=== PATIENT | female | born 1950 | race Caucasian/White ===

== ENCOUNTER 2019-06-17 09:33 | Inpatient (IN) | payer MEDICARE ==
[~2019-06-17] VITALS: Ht 167.6 cm; Wt 75.3 kg
[2019-06-17] MEDS ORDERED: IPRATRPIUM/ALBUTEROL 0.5/2.5MG 3 ML NEBU. NEB ONE (10:15)
[2019-06-17 10:29] LABS: BASO # 0.1 x10^3/uL (0.0-0.2); BASO % 1 % (0-3); EOS # 0.2 x10^3/uL (0.0-0.7); EOS % 2 % (0-3); HEMATOCRIT 41.2 % (36.0-47.0); HEMOGLOBIN 14.1 g/dL (12.0-15.5); LYMPH # 1.8 x10^3/uL (1.0-4.8); LYMPH % 18 % (24-48); MEAN CORPUSCULAR HEMOGLOBIN 31 pg (25-35); MEAN CORPUSCULAR HGB CONC 34 g/dL (31-37); MEAN CORPUSCULAR VOLUME 90 fL (79-100); MONO # 0.8 x10^3/uL (0.0-1.1); MONO % 7 % (0-9); NEUT # 7.6 x10^3/uL (1.8-7.7); NEUT % 72 % (31-73); PLATELET COUNT 247 x10^3/uL (140-400); RED CELL DISTRIBUTION WIDTH 13.7 % (11.5-14.5); WHITE BLOOD COUNT 10.5 x10^3/uL (4.0-11.0)
[2019-06-17] MEDS ORDERED: methylPREDNISolone SOD SUCC PF 125 MG/2 ML VIAL. IV ONE (10:30)
--- NOTE | 2019-06-17 10:36 | RAD ---
PA and lateral views of the chest. Comparison: None. Indication: Shortness of air and cough Findings: The heart size is normal. No pneumothorax or effusion. No air space or interstitial disease. The bony structures are intact. Impression: 1. No acute cardiopulmonary process. Electronically signed by: Thai Pantoja MD (06/17/2019 10:33 AM) [facility]
[2019-06-17 10:39] LABS: PROTHROMBIN TIME PATIENT 12.9 SEC (11.7-14.0)
[2019-06-17 10:41] LABS: BILIRUBIN,URINE NEGATIVE (NEG); CLARITY,URINE CLEAR; COLOR,URINE YELLOW; NITRITE,URINE NEGATIVE (NEG); PH,URINE 5.5; PROTEIN,URINE NEGATIVE (NEG-TRACE); UROBILINOGEN,URINE 0.2 mg/dL (0.2 mg/dL)
[2019-06-17 10:47] LABS: D-DIMER 0.87 ug/mlFEU (0.00-0.50)
--- NOTE | 2019-06-17 10:51 | PHYS DOC ---
Past Medical History Attending Signature I have participated in the care of this patient and I have reviewed and agree with all pertinent clinical information above including history, exam, and recommendations. (KISHA GARCIA MD) Adult General Chief Complaint Chief Complaint: SHORTNESS OF BREATH HPI HPI Patient is a 69 year old female, who presents to the emergency department with complaints of shortness of breath for the last 2 days. Patient reports history of COPD and feels like she has been having problems with an upper respiratory cold for the last 2 weeks. She denies any chest pain, palpitations, nausea, vomiting and diarrhea, abdominal pain, fever, dysuria, back pain, hematuria, or increased urinary frequency. Patient states she has had a productive cough with yellow to clear sputum for the last 2 days. She denies any numbness, tingling, weakness, headache, or dizziness. Patient states she took a breathing treatment at home prior to arrival with some relief of her symptoms. Currently rates her discomfort a 5 out of 10 on pain scale, she denies any alleviating factors. All other ROS is neg unless otherwise noted in HPI. (SHAJI GARCÍA APRN) Review of Systems Review of Systems See Above (SHAJI GARCÍA APRN) Current Medications Current Medications Current Medications Medications (Trade) Dose Ordered Sig/Patrick Start Time Stop Time Status Last Admin Dose Admin Albuterol/ Ipratropium (Duoneb) 3 ml 1X ONCE 06/17/19 10:15 06/17/19 10:23 DC 06/17/19 10:07 3 ML Info (CONTRAST GIVEN -- Rx MONITORING) 1 each PRN DAILY PRN 06/17/19 11:30 06/19/19 11:29 Iohexol (Omnipaque 350 Mg/ml) 90 ml 1X ONCE 06/17/19 11:30 06/17/19 11:31 DC 06/17/19 12:00 90 ML Methylprednisolone Sodium Succinate (SOLU-Medrol 125MG VIAL) 125 mg 1X ONCE 06/17/19 10:30 06/17/19 10:31 DC 06/17/19 10:49 125 MG (KISHA GARCIA MD) Allergies Allergies Allergies Coded Allergies Type Severity Reaction Last Updated Verified No Known Drug Allergies 06/17/19 No (KISHA GARCIA MD) Physical Exam Physical Exam See Above Constitutional: Well developed, well nourished, no acute distress, non-toxic appearance. [] HENT: Normocephalic, atraumatic, bilateral external ears normal, oropharynx moist, no oral exudates, nose normal. [] Eyes: PERRLA, EOMI, conjunctiva normal, no discharge. [] Neck: Normal range of motion, no tenderness, supple, no stridor. [] Cardiovascular:Heart rate regular rhythm, no murmur [] Lungs & Thorax: Bilateral breath sounds clear to auscultation in upper lobes, coarse throughout posterior lobes, diminished in right lower lobe, scattered expiratory wheezes, no retractions, no increased work of breath.] Abdomen: Bowel sounds normal, soft, no tenderness, no masses, no pulsatile masses. [] Skin: Warm, dry, no erythema, no rash. [] Back: No tenderness Extremities: No cyanosis, ROM intact, no edema. [] Neurologic: Alert and oriented X 3, no focal deficits noted. [] Psychologic: Affect normal, judgement normal, mood normal. [] (SHAJI GARCÍA APRN) Current Patient Data Vital Signs Vital Signs Date Time Temp Pulse Resp B/P (MAP) Pulse Ox O2 Delivery O2 Flow Rate FiO2 06/17/19 14:05 88 20 147/82 (103) 95 Nasal Cannula 2.0 06/17/19 09:55 99.8 99.8 (KISHA GARCIA MD) Lab Values Laboratory Tests Test 06/17/19 10:15 06/17/19 10:30 06/17/19 10:50 White Blood Count 10.5 x10^3/uL (4.0-11.0) Red Blood Count 4.60 x10^6/uL (3.50-5.40) Hemoglobin 14.1 g/dL (12.0-15.5) Hematocrit 41.2 % (36.0-47.0) Mean Corpuscular Volume 90 fL (79-100) Mean Corpuscular Hemoglobin 31 pg (25-35) Mean Corpuscular Hemoglobin Concent 34 g/dL (31-37) Red Cell Distribution Width 13.7 % (11.5-14.5) Platelet Count 247 x10^3/uL (140-400) Neutrophils (%) (Auto) 72 % (31-73) Lymphocytes (%) (Auto) 18 % (24-48) L Monocytes (%) (Auto) 7 % (0-9) Eosinophils (%) (Auto) 2 % (0-3) Basophils (%) (Auto) 1 % (0-3) Neutrophils # (Auto) 7.6 x10^3/uL (1.8-7.7) Lymphocytes # (Auto) 1.8 x10^3/uL (1.0-4.8) Monocytes # (Auto) 0.8 x10^3/uL (0.0-1.1) Eosinophils # (Auto) 0.2 x10^3/uL (0.0-0.7) Basophils # (Auto) 0.1 x10^3/uL (0.0-0.2) Prothrombin Time 12.9 SEC (11.7-14.0) Prothrombin Time INR 1.0 (0.8-1.1) Activated Partial Thromboplast Time 39 SEC (24-38) H D-Dimer (Deya) 0.87 ug/mlFEU (0.00-0.50) H Urine Collection Type Void Urine Color Yellow Urine Clarity Clear Urine pH 5.5 Urine Specific [place] 1.020 Urine Protein Negative mg/dL (NEG-TRACE) Urine Glucose (UA) Negative mg/dL (NEG) Urine Ketones (Stick) Negative mg/dL (NEG) Urine Blood Moderate (NEG) Urine Nitrite Negative (NEG) Urine Bilirubin Negative (NEG) Urine Urobilinogen Dipstick 0.2 mg/dL (0.2 mg/dL) Urine Leukocyte Esterase Negative (NEG) Urine RBC 1-2 /HPF (0-2) Urine WBC 1-4 /HPF (0-4) Urine Squamous Epithelial Cells Mod /LPF Urine Bacteria Few /HPF (0-FEW) Urine Mucus Marked /LPF Sodium Level 140 mmol/L (136-145) Potassium Level 4.1 mmol/L (3.5-5.1) Chloride Level 102 mmol/L (98-107) Carbon Dioxide Level 27 mmol/L (21-32) Anion Gap 11 (6-14) Blood Urea Nitrogen 11 mg/dL (7-20) Creatinine 0.8 mg/dL (0.6-1.0) Estimated GFR (Cockcroft-Gault) 71.1 BUN/Creatinine Ratio 14 (6-20) Glucose Level 103 mg/dL (70-99) H Lactic Acid Level 1.0 mmol/L (0.4-2.0) Calcium Level 9.3 mg/dL (8.5-10.1) Magnesium Level 2.1 mg/dL (1.8-2.4) Total Bilirubin 1.2 mg/dL (0.2-1.0) H Aspartate Amino Transferase (AST) 21 U/L (15-37) Alanine Aminotransferase (ALT) 31 U/L (14-59) Alkaline Phosphatase 102 U/L (46-116) Creatine Kinase 116 U/L (26-192) Creatine Kinase MB (Mass) 1.7 ng/mL (0.0-3.6) Creatine Kinase MB Relative Index 1.5 % (0-4) Troponin I Quantitative < 0.017 ng/mL (0.000-0.055) WU-Ekp-M-Type Natriuretic Peptide 209 pg/mL (0-124) H Total Protein 7.2 g/dL (6.4-8.2) Albumin 3.8 g/dL (3.4-5.0) Albumin/Globulin Ratio 1.1 (1.0-1.7) Laboratory Tests 06/17/19 10:15 Laboratory Tests 06/17/19 10:50 (KISHA GARCIA MD) EKG EKG 1039- sinus rhythm, incomplete right bundle branch block, no specific changes, rate 94, no STEMI read by Dr. Garcia (SHAJI GARCAÍ APRN) Radiology/Procedures Radiology/Procedures PROCEDURE: CHEST PA & LATERAL PA and lateral views of the chest. Comparison: None. Indication: Shortness of air and cough Findings: The heart size is normal. No pneumothorax or effusion. No air space or interstitial disease. The bony structures are intact. Impression: 1. No acute cardiopulmonary process. PROCEDURE: CT ANGIOGRAPHY CHEST CT ANGIOGRAPHY CHEST INDICATION: Dyspnea, elevated d-dimer. Comparison: Chest radiograph 06/17/2019. TECHNIQUE: Following the uneventful administration of intravenous contrast, 90 cc Isovue-370, axial CT sections were obtained through the lungs and upper abdomen. Multiplanar reconstructions and MIP images were obtained. PQRS compliance statement: One or more of the following individualized dose reduction techniques were utilized for this examination: 1. Automated exposure control 2. Adjustment of the mA and/or kV according to patient size 3. Use of iterative reconstruction technique FINDINGS: Lungs and Airways: Few scattered foci of groundglass opacity in the right lower lobe. Indeterminate right middle lobe polylobular nodule measuring 0.9 cm (series 3 image 88). Bibasilar subsegmental atelectasis. Centrilobular emphysema. Mild scattered endobronchial mucous plugging. Slightly irregular cystic area in the inferior right upper lobe without soft tissue component. Pleura: The pleural spaces are normal. Heart and Mediastinum: The visualized thyroid is normal in size and attenuation. No axillary or supraclavicular lymphadenopathy. No mediastinal, hilar or retrocrural lymphadenopathy. Normal cardiac size. No pericardial effusion. Coronary artery atherosclerotic disease. Atherosclerosis of the thoracic aorta and branch vessels. Small hiatal hernia. Abdomen: Limited images through the upper abdomen show no abnormality of the visualized organs. Bones and Soft Tissues: Degenerative changes of the spine. IMPRESSION: 1. No evidence of pulmonary thromboembolic disease. 2. Indeterminate right middle lobe nodule measuring 0.9 cm. Three-month follow-up chest CT is recommended to evaluate for growth and to help determine malignant potential. Tissue sampling and/or PET/CT could also be considered, although the nodule is borderline in size for PET sensitivity. 3. Few scattered foci of groundglass opacity in the right lower lobe which may represent an infectious/inflammatory process. Attention on follow-up imaging. 4. No mediastinal or hilar lymphadenopathy. [] (SHAJI GARCÍA APRN) Course & Med Decision Making Course & Med Decision Making Pertinent Labs and Imaging studies reviewed. (See chart for details) 1405- Pt does not tolerate increased activity, feels more SOA with activity, O2 sat decreased to 88% on room air. Will admit patient for COPD exacerbation. 1447- Spoke with Dr. Queen who is the admitting physician, and care was assumed following discussion of patient. Will order sputum culture and 1gm IV Rocephin. Patient's vital signs stable. Patient remains afebrile, appears nontoxic, respirations even and unlabored. Patient will be admitted to the med/tele floor. Patient's case and plan of care also discussed with Dr. Garcia. (SHAJI GARCÍA APRN) Leann Disclaimer Dragon Disclaimer This electronic medical record was generated, in whole or in part, using a voice recognition dictation system. (SHAJI GARCÍA APRN) Departure Departure Impression: Primary Impression: COPD exacerbation Additional Impression: Abnormal chest CT Disposition: ADMITTED INPATIENT Admitting Physician: Carie Queen (SHAJI GARCÍA APRN) Condition: STABLE Referrals: CARIE QUEEN MD (PCP) Problem Qualifiers SHAJI GARCÍA APRN Jun 17, 2019 10:51 KISHA GARCIA MD Jun 18, 2019 19:01
[2019-06-17 10:53] LABS: SQUAMOUS EPITHELIAL CELL,UR MOD /LPF
[2019-06-17 10:54] LABS: BACTERIA,URINE FEW /HPF (0-FEW)
[2019-06-17 11:15] LABS: CALCIUM 9.3 mg/dL (8.5-10.1); CREATININE 0.8 mg/dL (0.6-1.0); GFR 71.1; POTASSIUM 4.1 mmol/L (3.5-5.1)
[2019-06-17 11:20] LABS: ALBUMIN 3.8 g/dL (3.4-5.0); ALBUMIN/GLOBULIN RATIO 1.1 (1.0-1.7); MAGNESIUM 2.1 mg/dL (1.8-2.4); TOTAL BILIRUBIN 1.2 mg/dL (0.2-1.0); TOTAL PROTEIN 7.2 g/dL (6.4-8.2)
[2019-06-17] MEDS ORDERED: CONTRAST GIVEN. MC PRN (11:30)
[2019-06-17] MEDS ORDERED: IOHEXOL 350 MG/ML 100 ML VIAL. IV ONE (11:30)
--- NOTE | 2019-06-17 12:38 | RAD ---
CT ANGIOGRAPHY CHEST INDICATION: Dyspnea, elevated d-dimer. Comparison: Chest radiograph 06/17/2019. TECHNIQUE: Following the uneventful administration of intravenous contrast, 90 cc Isovue-370, axial CT sections were obtained through the lungs and upper abdomen. Multiplanar reconstructions and MIP images were obtained. RS compliance statement: One or more of the following individualized dose reduction techniques were utilized for this examination: 1. Automated exposure control 2. Adjustment of the mA and/or kV according to patient size 3. Use of iterative reconstruction technique FINDINGS: Lungs and Airways: Few scattered foci of groundglass opacity in the right lower lobe. Indeterminate right middle lobe polylobular nodule measuring 0.9 cm (series 3 image 88). Bibasilar subsegmental atelectasis. Centrilobular emphysema. Mild scattered endobronchial mucous plugging. Slightly irregular cystic area in the inferior right upper lobe without soft tissue component. Pleura: The pleural spaces are normal. Heart and Mediastinum: The visualized thyroid is normal in size and attenuation. No axillary or supraclavicular lymphadenopathy. No mediastinal, hilar or retrocrural lymphadenopathy. Normal cardiac size. No pericardial effusion. Coronary artery atherosclerotic disease. Atherosclerosis of the thoracic aorta and branch vessels. Small hiatal hernia. Abdomen: Limited images through the upper abdomen show no abnormality of the visualized organs. Bones and Soft Tissues: Degenerative changes of the spine. IMPRESSION: 1. No evidence of pulmonary thromboembolic disease. 2. Indeterminate right middle lobe nodule measuring 0.9 cm. Three-month follow-up chest CT is recommended to evaluate for growth and to help determine malignant potential. Tissue sampling and/or PET/CT could also be considered, although the nodule is borderline in size for PET sensitivity. 3. Few scattered foci of groundglass opacity in the right lower lobe which may represent an infectious/inflammatory process. Attention on follow-up imaging. 4. No mediastinal or hilar lymphadenopathy. Electronically signed by: Sky Ahmadi MD (06/17/2019 12:35 PM) [facility]
[2019-06-17] MEDS ORDERED: PRED50TA PO (13:13)
[2019-06-17] MEDS ORDERED: AZIT250T6 PO (13:13)
[2019-06-17] MEDS ORDERED: IPRATRPIUM/ALBUTEROL 0.5/2.5MG 3 ML NEBU. ONE (14:21)
[2019-06-17] MEDS: IPRATRPIUM/ALBUTEROL 0.5/2.5MG 3 ML NEBU. NEB SCH ×2 (14:23→20:50)
--- NOTE | 2019-06-17 14:27 | PDOC1 ---
History and Physical Date of Admission Date of Admission DATE: 06/17/19 TIME: 14:26 Identification/Chief Complaint Chief Complaint SEEN IN ER , presented to the emergency department with complaints of shortness of breath for the last 2 days. Patient reports history of COPD and feels like she has been having problems with an upper respiratory cold for the last 2 weeks. She denies any chest pain, palpitations, nausea, vomiting and diarrhea, abdominal pain, fever, dysuria, back pain, hematuria, or increased urinary frequency. Patient states she has had a productive cough with yellow to clear sputum for the last 2 days. She denies any numbness, tingling, weakness, headache, or dizziness. Patient states she took a breathing treatment at home prior to arrival with some relief of her symptoms. Currently rates her discomfort a 5 out of 10 on pain scale, she denies any alleviating factors. Past Medical History Pulmonary: COPD Social History Smoke: <1 pack per day ALCOHOL: occassional Drugs: None Current Problem List Problem List Problems Medical Problems: (1) Abnormal chest CT Status: Acute (2) COPD exacerbation Status: Acute Current Medications Current Medications Current Medications Albuterol/ Ipratropium (Duoneb) 3 ml 1X ONCE NEB Last administered on at 10:07; Start 06/17/19 at 10:15; Stop 06/17/19 at 10:23; Status DC Methylprednisolone Sodium Succinate (SOLU-Medrol 125MG VIAL) 125 mg 1X ONCE IV Last administered on 06/17/19at 10:49; Start 06/17/19 at 10:30; Stop 06/17/19 at 10:31; Status DC Iohexol (Omnipaque 350 Mg/ml) 90 ml 1X ONCE IV Last administered on 06/17/19at 12:00; Start 06/17/19 at 11:30; Stop 06/17/19 at 11:31; Status DC Info (CONTRAST GIVEN -- Rx MONITORING) 1 each PRN DAILY PRN MC SEE COMMENTS; Start 06/17/19 at 11:30; Stop 06/19/19 at 11:29 Albuterol/ Ipratropium (Duoneb) 3 ml RTQID NEB Last administered on 06/17/19at 14:23; Start 06/17/19 at 16:00; Stop 06/18/19 at 15:59 Albuterol/ Ipratropium (Duoneb) 3 ml STK-MED ONCE .ROUTE ; Start 06/17/19 at 14:21; Stop 06/17/19 at 14:22; Status DC Azithromycin 250 ml @ 250 mls/hr 1X ONCE IV ; Start 06/17/19 at 14:30; Stop 06/17/19 at 15:29 Active Scripts Active Allergies Allergies: Coded Allergies: No Known Drug Allergies (Unverified , 06/17/19) Vitals Vitals Vital Signs Date Time Temp Pulse Resp B/P (MAP) Pulse Ox O2 Delivery O2 Flow Rate FiO2 06/17/19 14:24 93 Nasal Cannula 2.0 06/17/19 09:55 99.8 109 22 184/106 (132) 99.8 Labs Labs Laboratory Tests Test 06/17/19 10:15 06/17/19 10:30 06/17/19 10:50 White Blood Count 10.5 x10^3/uL (4.0-11.0) Red Blood Count 4.60 x10^6/uL (3.50-5.40) Hemoglobin 14.1 g/dL (12.0-15.5) Hematocrit 41.2 % (36.0-47.0) Mean Corpuscular Volume 90 fL (79-100) Mean Corpuscular Hemoglobin 31 pg (25-35) Mean Corpuscular Hemoglobin Concent 34 g/dL (31-37) Red Cell Distribution Width 13.7 % (11.5-14.5) Platelet Count 247 x10^3/uL (140-400) Neutrophils (%) (Auto) 72 % (31-73) Lymphocytes (%) (Auto) 18 % (24-48) Monocytes (%) (Auto) 7 % (0-9) Eosinophils (%) (Auto) 2 % (0-3) Basophils (%) (Auto) 1 % (0-3) Neutrophils # (Auto) 7.6 x10^3/uL (1.8-7.7) Lymphocytes # (Auto) 1.8 x10^3/uL (1.0-4.8) Monocytes # (Auto) 0.8 x10^3/uL (0.0-1.1) Eosinophils # (Auto) 0.2 x10^3/uL (0.0-0.7) Basophils # (Auto) 0.1 x10^3/uL (0.0-0.2) Prothrombin Time 12.9 SEC (11.7-14.0) Prothromb Time International Ratio 1.0 (0.8-1.1) Activated Partial Thromboplast Time 39 SEC (24-38) D-Dimer (Deya) 0.87 ug/mlFEU (0.00-0.50) Urine Collection Type Void Urine Color Yellow Urine Clarity Clear Urine pH 5.5 Urine Specific [place] 1.020 Urine Protein Negative mg/dL (NEG-TRACE) Urine Glucose (UA) Negative mg/dL (NEG) Urine Ketones (Stick) Negative mg/dL (NEG) Urine Blood Moderate (NEG) Urine Nitrite Negative (NEG) Urine Bilirubin Negative (NEG) Urine Urobilinogen Dipstick 0.2 mg/dL (0.2 mg/dL) Urine Leukocyte Esterase Negative (NEG) Urine RBC 1-2 /HPF (0-2) Urine WBC 1-4 /HPF (0-4) Urine Squamous Epithelial Cells Mod /LPF Urine Bacteria Few /HPF (0-FEW) Urine Mucus Marked /LPF Sodium Level 140 mmol/L (136-145) Potassium Level 4.1 mmol/L (3.5-5.1) Chloride Level 102 mmol/L (98-107) Carbon Dioxide Level 27 mmol/L (21-32) Anion Gap 11 (6-14) Blood Urea Nitrogen 11 mg/dL (7-20) Creatinine 0.8 mg/dL (0.6-1.0) Estimated GFR (Cockcroft-Gault) 71.1 BUN/Creatinine Ratio 14 (6-20) Glucose Level 103 mg/dL (70-99) Lactic Acid Level 1.0 mmol/L (0.4-2.0) Calcium Level 9.3 mg/dL (8.5-10.1) Magnesium Level 2.1 mg/dL (1.8-2.4) Total Bilirubin 1.2 mg/dL (0.2-1.0) Aspartate Amino Transf (AST/SGOT) 21 U/L (15-37) Alanine Aminotransferase (ALT/SGPT) 31 U/L (14-59) Alkaline Phosphatase 102 U/L (46-116) Creatine Kinase 116 U/L (26-192) Creatine Kinase MB (Mass) 1.7 ng/mL (0.0-3.6) Creatine Kinase MB Relative Index 1.5 % (0-4) Troponin I Quantitative < 0.017 ng/mL (0.000-0.055) YY-Rub-D-Type Natriuretic Peptide 209 pg/mL (0-124) Total Protein 7.2 g/dL (6.4-8.2) Albumin 3.8 g/dL (3.4-5.0) Albumin/Globulin Ratio 1.1 (1.0-1.7) Laboratory Tests Test 06/17/19 10:15 06/17/19 10:30 06/17/19 10:50 White Blood Count 10.5 x10^3/uL (4.0-11.0) Red Blood Count 4.60 x10^6/uL (3.50-5.40) Hemoglobin 14.1 g/dL (12.0-15.5) Hematocrit 41.2 % (36.0-47.0) Mean Corpuscular Volume 90 fL (79-100) Mean Corpuscular Hemoglobin 31 pg (25-35) Mean Corpuscular Hemoglobin Concent 34 g/dL (31-37) Red Cell Distribution Width 13.7 % (11.5-14.5) Platelet Count 247 x10^3/uL (140-400) Neutrophils (%) (Auto) 72 % (31-73) Lymphocytes (%) (Auto) 18 % (24-48) Monocytes (%) (Auto) 7 % (0-9) Eosinophils (%) (Auto) 2 % (0-3) Basophils (%) (Auto) 1 % (0-3) Neutrophils # (Auto) 7.6 x10^3/uL (1.8-7.7) Lymphocytes # (Auto) 1.8 x10^3/uL (1.0-4.8) Monocytes # (Auto) 0.8 x10^3/uL (0.0-1.1) Eosinophils # (Auto) 0.2 x10^3/uL (0.0-0.7) Basophils # (Auto) 0.1 x10^3/uL (0.0-0.2) Prothrombin Time 12.9 SEC (11.7-14.0) Prothromb Time International Ratio 1.0 (0.8-1.1) Activated Partial Thromboplast Time 39 SEC (24-38) D-Dimer (Deya) 0.87 ug/mlFEU (0.00-0.50) Urine Collection Type Void Urine Color Yellow Urine Clarity Clear Urine pH 5.5 Urine Specific [place] 1.020 Urine Protein Negative mg/dL (NEG-TRACE) Urine Glucose (UA) Negative mg/dL (NEG) Urine Ketones (Stick) Negative mg/dL (NEG) Urine Blood Moderate (NEG) Urine Nitrite Negative (NEG) Urine Bilirubin Negative (NEG) Urine Urobilinogen Dipstick 0.2 mg/dL (0.2 mg/dL) Urine Leukocyte Esterase Negative (NEG) Urine RBC 1-2 /HPF (0-2) Urine WBC 1-4 /HPF (0-4) Urine Squamous Epithelial Cells Mod /LPF Urine Bacteria Few /HPF (0-FEW) Urine Mucus Marked /LPF Sodium Level 140 mmol/L (136-145) Potassium Level 4.1 mmol/L (3.5-5.1) Chloride Level 102 mmol/L (98-107) Carbon Dioxide Level 27 mmol/L (21-32) Anion Gap 11 (6-14) Blood Urea Nitrogen 11 mg/dL (7-20) Creatinine 0.8 mg/dL (0.6-1.0) Estimated GFR (Cockcroft-Gault) 71.1 BUN/Creatinine Ratio 14 (6-20) Glucose Level 103 mg/dL (70-99) Lactic Acid Level 1.0 mmol/L (0.4-2.0) Calcium Level 9.3 mg/dL (8.5-10.1) Magnesium Level 2.1 mg/dL (1.8-2.4) Total Bilirubin 1.2 mg/dL (0.2-1.0) Aspartate Amino Transf (AST/SGOT) 21 U/L (15-37) Alanine Aminotransferase (ALT/SGPT) 31 U/L (14-59) Alkaline Phosphatase 102 U/L (46-116) Creatine Kinase 116 U/L (26-192) Creatine Kinase MB (Mass) 1.7 ng/mL (0.0-3.6) Creatine Kinase MB Relative Index 1.5 % (0-4) Troponin I Quantitative < 0.017 ng/mL (0.000-0.055) WK-Iph-P-Type Natriuretic Peptide 209 pg/mL (0-124) Total Protein 7.2 g/dL (6.4-8.2) Albumin 3.8 g/dL (3.4-5.0) Albumin/Globulin Ratio 1.1 (1.0-1.7) Images Images PQRS compliance statement: One or more of the following individualized dose reduction techniques were utilized for this examination: 1. Automated exposure control 2. Adjustment of the mA and/or kV according to patient size 3. Use of iterative reconstruction technique FINDINGS: Lungs and Airways: Few scattered foci of groundglass opacity in the right lower lobe. Indeterminate right middle lobe polylobular nodule measuring 0.9 cm (series 3 image 88). Bibasilar subsegmental atelectasis. Centrilobular emphysema. Mild scattered endobronchial mucous plugging. Slightly irregular cystic area in the inferior right upper lobe without soft tissue component. Pleura: The pleural spaces are normal. Heart and Mediastinum: The visualized thyroid is normal in size and attenuation. No axillary or supraclavicular lymphadenopathy. No mediastinal, hilar or retrocrural lymphadenopathy. Normal cardiac size. No pericardial effusion. Coronary artery atherosclerotic disease. Atherosclerosis of the thoracic aorta and branch vessels. Small hiatal hernia. Abdomen: Limited images through the upper abdomen show no abnormality of the visualized organs. Bones and Soft Tissues: Degenerative changes of the spine. IMPRESSION: 1. No evidence of pulmonary thromboembolic disease. 2. Indeterminate right middle lobe nodule measuring 0.9 cm. Three-month follow-up chest CT is recommended to evaluate for growth and to help determine malignant potential. Tissue sampling and/or PET/CT could also be considered, although the nodule is borderline in size for PET sensitivity. 3. Few scattered foci of groundglass opacity in the right lower lobe which may represent an infectious/inflammatory process. Attention on follow-up imaging. 4. No mediastinal or hilar lymphadenopathy. Electronically signed by: Vale Soto MD (06/17/2019 12:35 PM) [id number] DICTATED and SIGNED BY: VALE SOTO MD DATE: 06/17/19 1235 Assessment/Plan Assessment/Plan Impression: acute COPD exacerbation ACUTE HYPOXIC RESPIRATORY FAILURE Abnormal chest CT UNCONTROLLED HYPERTENSION ADMITTED TIFFANY KENNEDY MD Jun 17, 2019 14:27
[2019-06-17] MEDS ORDERED: AZITHRMYCN 500MG IVPB FOR OMNI 250 ML IV ONE (14:30)
[2019-06-17] MEDS ORDERED: cefTRIAXone IV Push 1 GM VIAL. IVP ONE (15:00)
[2019-06-17 16:57] VITALS: BP 160/82
[2019-06-17] MEDS ORDERED: ATOR20TA PO (17:52)
[2019-06-17] MEDS ORDERED: ALBU0.63 NEB (17:52)
[2019-06-17] MEDS ORDERED: AMLO2.5T5 PO (17:52)
[2019-06-17] MEDS ORDERED: ALBU2.5V8 INH (17:52)
[2019-06-17] MEDS ORDERED: UMEC62.5 IH (17:52)
[2019-06-17 19:25] VITALS: BP 126/70
[2019-06-17] MEDS ORDERED: ALBUTEROL SULFATE 2.5 MG/3 ML NEBU. INH PRN (20:15)
[2019-06-17] MEDS ORDERED: ALBUTEROL SULFATE 2.5 MG/3 ML NEBU. NEB SCH (21:15)
[2019-06-17] MEDS: diphenhydrAMINE HCL 25 MG CAPSULE PO PRN (21:42)
[2019-06-17] MEDS: ATORVASTATIN CALCIUM 20 MG TABLET PO SCH (21:42)
[2019-06-17 23:34] VITALS: BP 146/68
[2019-06-18 03:45] VITALS: BP 119/63
[2019-06-18 07:00] VITALS: BP 127/72
[2019-06-18] MEDS: IPRATRPIUM/ALBUTEROL 0.5/2.5MG 3 ML NEBU. NEB SCH ×6 (07:54→20:01)
[2019-06-18] MEDS: amLODIPine BESYLATE 5 MG TABLET PO SCH (08:11)
--- NOTE | 2019-06-18 10:11 | EKG ---
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
[2019-06-18] MEDS ORDERED: IV NORMAL SALINE 1000ML BAG 1,000 ML IV SCH (10:45)
[2019-06-18 11:00] VITALS: BP 115/63
--- NOTE | 2019-06-18 11:12 | HP ---
ADMIT DATE: 06/17/2019 CHIEF COMPLAINT AND HISTORY OF PRESENT ILLNESS: This 69-year-old white female, patient of Dr. Vince Mcneal, presented to the Emergency Room with shortness of breath for the last couple of days. She has had a respiratory thing going on for at least 2 weeks. She has a history of COPD and was felt to have an exacerbation of her COPD and admitted through the Emergency Room on the day of admission. PAST MEDICAL HISTORY: Remarkable for COPD, hypertension, and hyperlipidemia. MEDICATIONS: Brought with the patient, listed on the computer and have been addressed. ALLERGIES: She has no known drug allergies. SOCIAL HISTORY: Noncontributory. FAMILY HISTORY: Noncontributory. REVIEW OF SYSTEMS: As mentioned above. PHYSICAL EXAMINATION: GENERAL: She is well-developed, well-nourished white female, in no acute distress by the time of my examination. HEAD, EYES, EARS, NOSE, AND THROAT: Unremarkable. NECK: Supple without bruit or thyromegaly. CHEST: Reveals coarse breath sounds throughout both lungs with expiratory wheezing. LABORATORY DATA: Chest x-ray on admission shows no acute cardiopulmonary process and CTA of the chest shows no evidence of pulmonary embolism. She does have 0.9-cm right middle lobe and indeterminate nodule for which a repeat CT in 3 months is recommended. There were a few scattered foci of ground glass opacity in the right lower lobe, which could represent an infectious inflammatory process. HEART: Regular rate and rhythm without S3, S4 or murmur. ABDOMEN: Soft and nontender without hepatosplenomegaly or masses. EXTREMITIES: Without cyanosis, clubbing, or edema. NEUROLOGIC: She is intact. She is on 2 liters per nasal cannula oxygen. LABORATORY DATA: On admission shows a normal UA. BNP that was very mildly elevated at 209 and normal troponin. CMP and CBC are essentially unremarkable. IMPRESSION: Exacerbation of chronic obstructive pulmonary disease with shortness of breath. ADDITIONAL DIAGNOSES: Hypertension, hyperlipidemia, abnormal CT chest as described above. PLAN: The patient has been admitted. She will be placed on antibiotics, pulmonary toilet, steroids, IV fluids, monitored, managed, and treated appropriately. VALE ORTIZ MD DR: JAYY/lavelle JOB#: [id number] / [id number]
--- NOTE | 2019-06-18 11:37 | PDOC ---
Provider Note Provider Note feels better since admit, scant sputum, no new sxs - ct shows rml nodule same as 07/06 so will need yearly now- cont same meds, maybe home 06/19 CARIE QUEEN MD Jun 18, 2019 11:37
[2019-06-18] MEDS ORDERED: cefTRIAXone IV Push 1 GM VIAL. IVP SCH (14:30)
[2019-06-18] MEDS ORDERED: AZITHROMYCIN 500 MG in IV NORMAL SALINE 250ML 250 ML IV SCH (14:30)
[2019-06-18] MEDS: methylPREDNISolone SOD SUCC PF 40 MG/ML VIAL. IV SCH ×2 (14:43→21:46)
[2019-06-18 15:00] VITALS: BP 118/66
[2019-06-18 19:20] VITALS: BP 139/74
[2019-06-18] MEDS: ATORVASTATIN CALCIUM 20 MG TABLET PO SCH (21:46)
[2019-06-18] MEDS: diphenhydrAMINE HCL 25 MG CAPSULE PO PRN (22:15)
[2019-06-18 23:15] VITALS: BP 116/70
[2019-06-19 03:33] VITALS: BP 109/59
[2019-06-19] MEDS: methylPREDNISolone SOD SUCC PF 40 MG/ML VIAL. IV SCH (05:59)
[2019-06-19 07:00] VITALS: BP 139/66
[2019-06-19] MEDS: IPRATRPIUM/ALBUTEROL 0.5/2.5MG 3 ML NEBU. NEB SCH (07:43)
[2019-06-19] MEDS: amLODIPine BESYLATE 5 MG TABLET PO SCH (08:14)
--- NOTE | 2019-06-19 08:43 | PDOC ---
Provider Note Provider Note [id number] CARIE QUEEN MD Jun 19, 2019 08:43
--- NOTE | 2019-06-19 08:53 | DS ---
DATE OF DISCHARGE: 06/19/2019 HOSPITAL SUMMARY: A 69-year-old white female with known COPD, previously noted right middle lobe nodule [address] about 1 year ago, came in with increased shortness of breath, cough and some sputum production. She has been using a vape at home and trying to reduce tobacco use with some success. Chest x-ray was clear. CT scan showed no acute changes and 9 mm right middle lobe nodule was unchanged from about 1 year ago. Laboratory studies were all within normal limits. Sputum culture pending at this time with Gram stain unremarkable. She was treated with IV azithromycin and Rocephin and Solu-Medrol and breathing treatments and is feeling better and is comfortable to be discharged and followed as an outpatient. Her room air oxygen was about 92% at rest and 6-minute walk was not attempted on discharge date. FINAL DIAGNOSES: 1. Acute exacerbation of chronic obstructive pulmonary disease. 2. Right middle lobe nodule, unchanged from 1 year. 3. Chronic tobacco abuse. OPERATIONS, PROCEDURES, COMPLICATIONS, CONSULTATIONS: None. DISPOSITION: Prednisone 40 mg daily and taper over 9 days, levofloxacin 500 mg 1 daily for 5 more days. She will use a vape for her nicotine use. Complete tobacco avoidance. Rest of home meds remain the same. Office followup in 4-7 days with spirometry if needed and neck CT scan will be 06/2020 for her cancer surveillance. IMMUNIZATIONS: Will be addressed at that time, but are not available now. CARIE QUEEN MD DR: DERIK/lavelle JOB#: [id number] / [id number]
--- NOTE | 2019-06-19 09:11 | NUR ---
Pt has been on oxygen via [place] continuously during this hospital stay. Received discharge orders from Dr. Mcneal. was notified that pt has no oxygen at home, but he feels at this time she will be fine going home without oxygen and she will follow up in office with him. No further orders received at this time.
[2019-06-19 11:00] VITALS: BP 133/77
--- NOTE | 2019-06-19 11:10 | NUR ---
Discharge Note: JOSS GALEAS [address] Discharge instructions and discharge home medications reviewed with Patient and a copy given. All questions have been answered and understanding verbalized. The following instructions and handouts were given: F/U WITH DR. QUEEN WITHIN ONE WEEK. Discontinued lines and drains: Peripheral IV intact. Patient discharged to Home or Self Care with Family Member via Wheelchair
== END 2019-06-19 11:10 | disposition home or self-care (01) | DRG 192 ==
LOC: ER 09:33 → 6 SOUTH 14:05
PROVIDERS: ADMIT Family Medicine; ATTEND Family Medicine
DX: J44.1 Chronic obstructive pulmonary disease with (acute) exacerbation (principal); E78.5 Hyperlipidemia, unspecified; I10 Essential (primary) hypertension; Z79.899 Other long term (current) drug therapy
CPT/HCPCS: 36415; 71046; 71275; 80053; 81001; 82553; 83605; 83735; 83880; 84484; 85025; 85379; 85610; 85730; 87070; 87205; 93005; 94640; 94760; 96365; 96375; J0456; J0696; J2920; J2930; J7030; J7620; Q0163; Q9967; 99285-25; G0378

== ENCOUNTER → 2020-11-14 | Day surgery (SDC) | payer MEDICARE ==
[~2020-11-14] MED LIST: ALBU0.63 NEB; ALBU2.5V8 INH; AMLO2.5T5 PO; ATOR20TA PO; AZIT250T6 PO; IV RINGERS,LACTATED 1000ML 1,000 ML IV SCH; LIDOCAINE 2% PF 5 ML VIAL. ONE; PRED50TA PO; PROPOFOL 10 MG/ML (20ML) VIAL. IV ONE; UMEC62.5 IH
[2020-11-14 09:10] VITALS: BP 153/79
--- NOTE | 2020-11-14 09:27 | CONS ---
DATE OF CONSULTATION: 11/14/2020 REASON FOR CONSULTATION: Colorectal screening with a family history of colon cancer. HISTORY OF PRESENT ILLNESS: A 70-year-old female whose past medical history is significant for tobaccoism, COPD, hypertension, hyperlipidemia, seen for a screening colon exam. Bowel habits are regular without diarrhea or constipation. There has been no melena or hematochezia. Weight and appetite are stable. FAMILY HISTORY: Positive for colon cancer with both parents. PAST MEDICAL HISTORY: Asthma, COPD, tobaccoism. MEDICATIONS: Include albuterol, amlodipine, atorvastatin, and Ellipta. PAST SURGICAL HISTORY: Include appendectomy, , eye surgery and hysterectomy. FAMILY HISTORY: Significant for the colorectal cancer with both parents, heart attack with brother. Social drinker and smoker. REVIEW OF SYSTEMS: HEENT: There is no decreased hearing or visual acuity issues. CARDIOVASCULAR: History of hypertension. PULMONARY: History of tobaccoism. NEUROLOGIC: No stroke, migraine, neuropathy. PSYCHIATRIC: No mood swings, depression, insomnia. HEMATOLOGIC: No bleeding, bruising, coagulopathy. ENDOCRINE: No history of heat or cold intolerance, thyroid disease, diabetes. DERMATOLOGIC: No skin rashes or pruritus. MUSCULOSKELETAL: No history of osteoarthrosis, arthralgias, myalgias. PHYSICAL EXAMINATION: GENERAL: Reveals a well-nourished, well-developed female. VITAL SIGNS: Temperature is 97.9, pulse 84, respiratory rate 20, sats 96%. HEENT: Exam is normocephalic, atraumatic head. Pupils and extraocular muscles not tested. Sclerae are anicteric. NECK: Supple. LUNGS: Clear. HEART: Reveals an S1, S2, without S3, S4 or appreciable murmur. ABDOMEN: Reveals a soft abdomen, normal bowel sounds, without appreciable hepatosplenomegaly. EXTREMITIES: Multiple surgical incisions. No cyanosis, clubbing or edema. IMPRESSION AND PLAN: Colorectal screening, with positive family history of colon cancer, is recommended at this time. Risks and benefits of the procedure including risk of hemorrhage and perforation during the operation were discussed. The patient was willing to proceed. I would like to thank Dr. Lam Rubin for allowing us to participate in this patient's care. DAWN DR: Isidro TID: [id number] CC: LAM RUBIN MD
--- NOTE | 2020-11-19 18:09 | PATHOLOGY ---
[facility] Accession Number: [id number] . 01 Material submitted: . PART A: splenic flexure - SPLENIC FLEXURE POLYP PART B: sigmoid colon - SIGMOID POLYPS . 01 Clinical history: . CRC SCREEN, COLONOSCOPY . 02 Diagnosis: A. Colon biopsy, splenic flexure polyp: - Mixed hyperplastic/adenomatous polyp. . B. Colon biopsies, sigmoid polyps: - Tubular adenoma (1). - Hyperplastic polyp (1). . (JPM:ronni; 11/19/2020) [facility] 11/19/2020 1615 Local . 02 Comment: There is no high-grade dysplasia or evidence of malignancy. (JPM:ronni; 11/19/2020) . 02 Electronically signed: . Michael Gotti MD, Pathologist NPI- [id number] . 01 Gross description: . A. Received in formalin labeled "Ashley Mix, splenic flexure polyp" is a fragment of cortez-brown soft tissue measuring 0.5 x 0.4 x 0.3 cm. The specimen is submitted entirely in A1. . B. Received in formalin labeled "Maria Del Rosario, Ashley sigmoid polyp" are 2 fragments of cortez-brown soft tissue measuring 0.5 x 0.4 x 0.3 cm and 0.4 x 0.4 x 0.3 cm. The specimen is submitted entirely in B1. ([facility]; 11/17/2020) [facility] 11/19/2020 1613 Local . 02 Pathologist provided ICD-10: D12.3, D12.5, K63.5 . 02 CPT . 933021, 193617 Specimen Comment: A courtesy copy of this report has been sent to [phone], [phone] Specimen Comment: [id number] Specimen Comment: Report sent to / Performed at: [address] [facility], [place] [id number] MD Diallo Wayne MD Phone: [phone] Performed at: [facility] [address] [place], [place] [id number] MD Michael Gotti MD Phone: [phone]
== END | disposition home or self-care (01) ==
LOC: ENDOS 06:49
PROVIDERS: ATTEND Internal Medicine Gastroenterology
DX: Z12.11 Encounter for screening for malignant neoplasm of colon (principal); D12.3 Benign neoplasm of transverse colon; D12.5 Benign neoplasm of sigmoid colon; K63.89 Other specified diseases of intestine; K64.0 First degree hemorrhoids; K57.30 Diverticulosis of large intestine without perforation or abscess without bleeding; E78.00 Pure hypercholesterolemia, unspecified; J43.9 Emphysema, unspecified; I12.9 Hypertensive chronic kidney disease with stage 1 through stage 4 chronic kidney disease, or unspecified chronic kidney disease; N18.2 Chronic kidney disease, stage 2 (mild); M19.90 Unspecified osteoarthritis, unspecified site; F41.9 Anxiety disorder, unspecified; F17.210 Nicotine dependence, cigarettes, uncomplicated; Z20.822 Contact with and (suspected) exposure to COVID-19; Z90.710 Acquired absence of both cervix and uterus; Z98.890 Other specified postprocedural states; Z79.899 Other long term (current) drug therapy
CPT/HCPCS: 45385; 87426; 88305; J2704; 45380